=== PATIENT | male | born 1990 | race Caucasian/White ===

== ENCOUNTER 2018-08-30 17:32 | Emergency (ER) | payer SELFPAY ==
--- NOTE | 2018-08-30 17:57 | ED Physician Chart ---
ED Chief Complaint/HPI - Patient Information Date Seen:: 08/30/18 Time Seen:: 17:20 Chief Complaint:: Agitated with small pupils after using cocaine History of Present Illness:: 28 yo male became agitated with small pupils after using heroin. A special skills officer called 911 and pt was brought via ALS to ER for being tachycardic, diaphoretic. On arrival, pt appeared not be in acute distress. Vitals:: Vital Signs - 8 hr 08/30/18 17:46 Temp 97.7 F HR 136 RR 18 BP 132/62 O2 Sat % 92 ED Review of Systems - Review of Systems General/Constitutional: Fever Skin: No rash Head: No headache Eyes: No pain, Other (Miosis) ENT: No nasal drainage Neck: No neck pain Cardio Vascular: No chest pain Pulmonary: No SOB GI: No nausea, No vomiting Musculoskeletal: No bone or joint pain Neurological: No focal symptoms ED Past Medical History - Past Medical History Past Medical History: No significant medical hx Social History: Non Smoker, Alcohol, Illicit Drug Use Psychiatricy History: Depression, Schizophrenia, Bipolar ED Physical Exam - Physical Examination General/Constitutional: Awake, Alert Head: Atraumatic Eyes: PERRL Other Eyes comments:: Miosis of bilateral eyes. ENMT: Nasal exam nl Neck: No nuchal rigidity Respiratory: No Wheeze/Rhonchi/Rales Cardio Vascular: RRR, No murmur, gallop, rubs, NL S1 S2 GI: No tenderness/rebounding/guarding Extremities: normal strength in all extremities ED Assessment - Assessment General Assessment: Substance abuse Depression Bipolar disorder Schizophrenia ED Septic Shock - . Is Septic Shock (SBP<90, OR Lactate>4 mmol\L) present?: No - <6hrs of presentation: Vital Signs: Vital Signs - 8 hr 08/30/18 17:46 Temp 97.7 F HR 136 RR 18 BP 132/62 O2 Sat % 92 ED Reassessment (Disposition) - Reassessment Reassessment:: Pt left AMA without being treated. Reassessment Condition:: Unchanged - Patient Disposition Discharge/Transfer:: Against Medical Advice
== END 2018-08-30 17:47 | disposition left against medical advice (07) ==
LOC: ER 17:32
DX: F32.9 Major depressive disorder, single episode, unspecified (principal); F20.9 Schizophrenia, unspecified; F11.10 Opioid abuse, uncomplicated; F14.10 Cocaine abuse, uncomplicated
CPT/HCPCS: Z7502